=== PATIENT | female | born 1985 | race Caucasian/White ===

== ENCOUNTER 2024-02-08 10:03 | Emergency (ER) | payer BC, SELFPAY ==
[2024-02-08 10:07] VITALS: BP 122/78; PULSE 107; RESP 18; TEMP 37.1; O2SAT 100; BMI 24.8
--- NOTE | 2024-02-08 10:24 | CRLHL7_ITS ---
For Patients: As a result of the Century Cures Act, medical imaging exams and procedure reports are released immediately into your electronic medical record. You may view this report before your referring provider. If you have questions, please contact your health care provider. INDICATION: Pelvic pain TECHNIQUE: Ultrasound pelvis transabdominal and transvaginal for better assessment or to better visualize the endometrium. Real-time sonographic images with spectral and color Doppler imaging of the ovaries were obtained. COMPARISON: None FINDINGS: Uterus: 7.8 x 3.8 x 3.6 cm. Normal echotexture of the myometrium. No masses. Endometrium: Transvaginal imaging was performed to better evaluate the endometrium. Endometrial thickness measures 8 mm. No sign of endometrial mass or fluid. Right ovary measures 4.4 x 2.4 x 3.5 cm and left ovary measures 2.8 x 1.6 x 2.5 cm. There are dominant follicles seen within the right ovary. No evidence of cystic change. Normal arterial and venous blood flow is demonstrated in both ovaries. Cul-de-sac: No significant free fluid. IMPRESSION: Grossly unremarkable pelvic sonogram. Dictated by Ye Vargas MD @ 02/08/2024 12:05:33 PM (Electronically Signed)
[2024-02-08 10:39] LABS: Appearance Urine Slightly Cloudy (Clear); Bilirubin Urine 1+ (Negative); Blood Urine 2+ (Negative); Color Urine Amber (Yellow); Glucose Urine Negative (Negative); Ketones Urine 4+ (Negative); Leukocyte Esterase Urine Negative (Negative); Nitrite Urine Negative (Negative); Protein Urine Negative (Negative); Specific Gravity Urine 1.025 (1.000-1.030); Ur HCG Qualitative* Negative (Negative); Urobilinogen Urine 0.2 (0.2-1.0); pH Urine 5.5 (5.0-8.5)
[2024-02-08 10:42] LABS: Lactate Sepsis w/Reflex* 0.7 mmol/L (0.5-1.9)
[2024-02-08 10:47] LABS: Basophils Percent Auto 0.1 % (0.0-3.0); Eosinophils Percent Auto 0.1 % (0.0-7.0); Hematocrit 36.2 % (33.0-51.0); Hemoglobin* 11.8 gm/dL (12.0-16.0); Immature Granulocytes Pct Auto 0.2 %; Lymphocytes Percent Auto 11.9 % (20-44); Mean Corpuscular HGB Conc 33 gm/dL (32-36); Mean Corpuscular Hemoglobin 29 pg (26-34); Mean Corpuscular Volume 88 fL (80-100); Monocytes Percent Auto 4.8 % (0.0-11.0); Neutrophils Percent Auto 82.9 % (42.0-72.0); Platelet Count* 246 K/uL (140-440); White Blood Count* 11.58 K/uL (4.50-11.00)
[2024-02-08 10:48] LABS: Slide Review Reflex No
[2024-02-08 10:51] LABS: Bacteria Urine Moderate; Mucus Urine Moderate; Squamous Epithelial Cell Urine Many (None-Few)
--- NOTE | 2024-02-08 10:58 | ED.GENADULT ---
HPI - General Adult General Date Seen: 02/08/24 Chief complaint: Abdominal Pain Stated complaint: Abdominal pain Time Seen by Provider: 02/08/24 10:07 Source: patient, RN notes reviewed and old records reviewed Mode of arrival: ambulatory Limitations: no limitations History of Present Illness HPI narrative: Patient is a 38-year-old woman who presents for evaluation of abdominal pain. She notes she has had some pelvic cramping starting yesterday afternoon. She has had about 3 episodes of it, took ibuprofen once yesterday and took some Tylenol later in the day yesterday. Between these episodes she has not had any pain. She describes it is feeling somewhat like. Cramping that she has in fact late for her period, her last period was about 40 days ago. She did do a test at home which was negative. It is unusual for her to be irregular but she says she has been under fair amount of stress. She is on control. She denies nausea or vomiting, no significant problems with constipation. She had a little bit of diarrhea yesterday, nonbloody. She has not had any fevers or urinary symptoms. No history of kidney stones or ovarian cyst. No abdominal surgeries. General health is good. No allergies, does not smoke or drink. Here with her [id number]. Related Data Home Medications ?Medication ?Instructions ?Recorded ?Confirmed norgestrel 0.3 mg-ethinyl 1 tab PO DAILY 02/08/24 02/08/24 estradiol 30 mcg tablet (Jorge (28)) Allergies Allergy/AdvReac Type Severity Reaction Status Date / Time No Known Drug Allergies Allergy Verified 02/08/24 12:53 Review of Systems Status of ROS: Reports: 10 or more systems reviewed and unremarkable except as noted in History and below [facility] Social History Smoking Status: Never smoker Do you use any of these nicotine containing products: None How often do you have a drink containing alcohol: never How often do you have six or more drinks on one occasion: Never AUDIT-C Alcohol total score: 0 Non-prescribed substance use: denies use service: No Exam Narrative: Exam Narrative: Vital signs as noted above. In general, an alert, well-appearing patient. She looks comfortable. Head: Normocephalic, atraumatic. Eyes: Pupils are equal reactive. Extraocular movements are full. Conjunctivae are normal. ENT: Mucous membranes are moist. Delete Neck: Supple without lymphadenopathy. Heart: Regular rate and rhythm. No murmur or rub. Lungs: Clear bilaterally. No increased work of breathing, crackles or wheezes. Abdomen: Soft nondistended. She has a little bit of left lower quadrant tenderness without rebound guarding or rigidity. No CVA tenderness. Extremities: Well perfused. No edema. No calf tenderness. Pulses intact. Neurologic: Patient is alert and oriented to person and place. Speech is fluent. Face is symmetric. Moves all extremities equally. Affect: Normal. Skin: Warm and dry. Well perfused. Const: Vital Signs, click to edit/add: Vital Signs - 24 hr 02/08/24 10:07 Temperature 98.8 F Pulse Rate [Right Pulse Oximeter] 107 H Respiratory Rate 18 Blood Pressure [Ri ght Upper Arm] 122/78 Pulse Oximetry 100 Oxygen Delivery Me thod Room Air Documenting provider has reviewed patient's vital signs: yes Course Course ED Course: Diagnostic considerations would include ovarian pathology such as cyst or torsion, uterine cramping, ectopic , diverticulitis, kidney stone, UTI, pyelonephritis, among others. I have ordered a pelvic ultrasound, will check some basic labs, she denies need for anything for pain or other symptoms at this time. Labs are notable [place] [id number], and a CRP of 6. She did have a pelvic ultrasound which was normal with good blood flow to both ovaries, no large cysts, and a normal uterus without free fluid in the pelvis. test was negative. Because of the elevated CRP and white blood cell count I recommended that we pursue CT scan as well. She did have 5-10 red blood cells in her urine but no significant evidence of infection, she did have many squamous cells as well. She had an IV placed, was given Toradol 15 mg and feels improved. Remainder of her labs were largely unremarkable, minimal anemia with a hemoglobin of 11.8, left shift with 83% neutrophils, metabolic panel showing sodium of 133 potassium of 3.5, remainder normal. Blood sugar of 95, lactate of 0.7. CT scan read by Radiology showing mild diverticulitis without perforation or abscess. She also has an incidental 2 cm gallstone without surrounding changes suggestive of cholecystitis. She has had no upper abdominal or right or for abdominal pain I do not think the gallstone is pertinent in terms of today's presentation. I did discuss this finding with her, reviewed biliary colic, cholecystitis and recommended follow-up. We discussed diverticulitis and management plus or minus antibiotics. She has opted at this time for observation only. Given her young age, general health and benign presentation I think that is reasonable. Did discuss that regardless of antibiotic, some people do get worse with diverticulitis, reviewed that she should return for severe worsening pain, fever, vomiting etcetera. Otherwise, would recommend primary care follow-up in the next couple of weeks for recheck. Vital Signs Vital signs: Initial Vital Signs Temperature 98.8 F 02/08/24 10:07 Temperature Source Temporal Artery Scan 02/08/24 10:07 Pulse Rate 107 H 02/08/24 10:07 Pulse Rhythm Regular 02/08/24 10:07 Pulse Strength 3+ Normal 02/08/24 10:07 Respiratory Rate 18 02/08/24 10:07 Blood Pressure 122/78 02/08/24 10:07 Blood Pressure Mean 92 02/08/24 10:07 Blood Pressure Position Sitting 02/08/24 10:07 Pulse Oximetry 100 02/08/24 10:07 Oxygen Delivery Method Room Air 02/08/24 10:07 Vital Signs Temperature 98.8 F 02/08/24 10:07 Pulse Rate 107 H 02/08/24 10:07 Respiratory Rate 18 02/08/24 10:07 Blood Pressure 122/78 02/08/24 10:07 Pulse Oximetry 100 02/08/24 10:07 Oxygen Delivery Method Room Air 02/08/24 10:07 Temperature 98.8 F 02/08/24 10:07 Pulse Rate 107 H 02/08/24 10:07 Respiratory Rate 18 02/08/24 10:07 Blood Pressure 122/78 02/08/24 10:07 Pulse Oximetry 100 02/08/24 10:07 Oxygen Delivery Method Room Air 02/08/24 10:07 Medications Administered Medications: Discontinued Medications Generic Name Dose Route Start Last Admin Trade Name Freq PRN Reason Stop Dose Admin Ketorolac Tromethamine 15 mg 02/08/24 12:31 02/08/24 12:50 Ketorolac 15 Mg/Ml Inj IVP 02/08/24 12:32 15 mg ONCE ONE Administration Medical Decision Making Lab Data Labs: Lab Results 02/08/24 02/08/24 Range/Units 10:25 10:35 WBC 11.58 H (4.50-11.00) K/uL RBC 4.10 (4.00-5.20) m/uL Hgb 11.8 L (12.0-16.0) gm/dL Hct 36.2 (33.0-51.0) % MCV 88 (80-100) fL MCH 29 (26-34) pg MCHC 33 (32-36) gm/dL RDW Coeff of Chaitanya 13.0 (11.5-15.5) % Plt Count 246 (140-440) K/uL Neut % (Auto) 82.9 H (42.0-72.0) % Lymph % (Auto) 11.9 L (20-44) % [place] % (Auto) 4.8 (0.0-11.0) % Eos % (Auto) 0.1 (0.0-7.0) % Baso % (Auto) 0.1 (0.0-3.0) % Neut # (Auto) 9.60 H (1.7-7.0) K/uL Lymph # (Auto) 1.40 (0.90-2.90) K/uL [place] # (Auto) 0.60 (0.00-0.90) K/UL Eos # (Auto) 0.00 (0.00-0.50) K/uL Baso # (Auto) 0.00 (0.00-0.30) K/uL Abs Immat Gran (auto) 0.00 (0.00-0.30) K/uL Imm/Tot Granulo (auto) 0.2 % Sodium 133 L (135-149) mmol/L Potassium 3.5 L (3.6-5.1) mmol/L Chloride 102 (96-114) mmol/L Carbon Dioxide 20 (20-32) mmol/L Anion Gap 11 (7-15) mEq/L BUN 15 (5-24) mg/dL Creatinine 0.6 (0.5-1.5) mg/dL Estimated Creat Clear 106.19 Estimated GFR 118 ml/min Glucose 95 (60-115) mg/dL Lactate 0.7 (0.5-1.9) mmol/L Calcium 9.0 (8.4-10.6) mg/dL C-Reactive Protein 6.1 H (0.5-1.0) mg/dL Urine Color Kiah A (Yellow) Urine Appearance Slightly Cloudy A (Clear) Urine pH 5.5 (5.0-8.5) Ur Specific [place] 1.025 (1.000-1.030) Urine Protein Negative (Negative) Urine Glucose (UA) Negative (Negative) Urine Ketones 4+ A (Negative) Urine Blood 2+ A (Negative) Urine Nitrite Negative (Negative) Urine Bilirubin 1+ A (Negative) Urine Urobilinogen 0.2 (0.2-1.0) Ur Leukocyte Esterase Negative (Negative) Urine RBC 5-10 A (0-2) Urine WBC 2-5 (0-5) Ur Squamous Epith Cells Many A (None-Few) Urine Bacteria Moderate A (None) Urine Mucus Moderate A (None) Urine HCG, Qual Negative (Negative) Discharge Plan Discharge Clinical Impression: Diverticulitis Instructions: Diverticulitis (ED) Additional Instructions: Ibuprofen and/or Tylenol as needed for pain. If you change your mind about the antibiotics, you can call the ER, and I can send a prescription for you. Otherwise, please follow-up with your primary doctor for recheck in the next couple of weeks. Return to the ER at any time for severe or worsening pain, fevers, bloody stools, vomiting or other significant changes. Keep diet bland over the next few days. Prescriptions: No Action Jorge (28) 0.3-30 mg-mcg tablet 1 tab PO DAILY Follow Up/Referrals: Charleen Whitmore DO [Primary Care Provider] - Stand Alone Forms: Jibe Info Instructions
[2024-02-08 11:00] LABS: Chloride* 102 mmol/L (96-114); Sodium* 133 mmol/L (135-149)
[2024-02-08 11:01] LABS: Potassium* 3.5 mmol/L (3.6-5.1)
[2024-02-08 11:03] LABS: Creatinine* 0.6 mg/dL (0.5-1.5); Est. Creatinine Clearance* 106.19; Estimated Glomerular Filt Rate 118 ml/min
[2024-02-08 11:04] LABS: Anion Gap 11 mEq/L (7-15); Blood Urea Nitrogen* 15 mg/dL (5-24); Carbon Dioxide* 20 mmol/L (20-32); Glucose* 95 mg/dL (60-115)
[2024-02-08 11:07] LABS: C Reactive Protein* 6.1 mg/dL (0.5-1.0)
--- NOTE | 2024-02-08 12:30 | CRLHL7_ITS ---
For Patients: As a result of the Century Cures Act, medical imaging exams and procedure reports are released immediately into your electronic medical record. You may view this report before your referring provider. If you have questions, please contact your health care provider. Indication: PELVIC PAIN, ELEVATED CRP Technique: CT abdomen/pelvis with IV contrast, 69 mL Isovue 370 Comparison: Same-day pelvic ultrasound Findings: Lower thorax: Trace dependent and basilar atelectasis. Abdomen/pelvis: Hepatomegaly without focal hepatic lesions. Appearance. Large gallstone measuring 2.[address] evidence of acute cholecystitis. No biliary ductal dilatation. The spleen, pancreas, adrenal glands, kidneys, ureters, uterus, and ovaries are unremarkable in appearance. There is no evidence of bowel obstruction. The appendix is normal. Short segment circumferential wall thickening of the sigmoid colon with a few adjacent inflamed diverticula and mild pericolonic fat stranding, consistent with acute diverticulitis. No free fluid or free air. No abscess. No abdominopelvic lymphadenopathy. The vasculature is unremarkable. Soft tissue/musculoskeletal: Tiny fat containing umbilical hernia. No acute fracture or malalignment. Levo scoliotic curvature of the thoracolumbar spine. Grade 1 anterolisthesis of L5 on S1 secondary to bilateral pars defects. Lumbarization of S1. No suspicious osseous lesions. Few bone islands. Impression: 1. Acute, uncomplicated sigmoid diverticulitis. 2. Additional incidental findings as detailed above. Please note that all CT scans at this facility use dose modulation, iterative reconstruction, and/or weight-based dosing when appropriate to reduce radiation dose to as low as reasonably achievable. Dictated by Colton Lopez MD @ 02/08/2024 1:34:50 PM (Electronically Signed)
[2024-02-08] MEDS: KETOROLAC 15 MG/ML inj IVP (12:50)
== END 2024-02-08 14:00 | disposition home or self-care (01) ==
PROVIDERS: Emergency Provider Emergency Medicine; PCP Family Medicine
DX: K57.92 Diverticulitis of intestine, part unspecified, without perforation or abscess without bleeding (principal)
CPT/HCPCS: 36415; 74177; 76830; 80048; 81001; 81025; 83605; 85025; 86140; 87086; 93976; 96374; 99284; J1885; Q9967